=== PATIENT | female | born 1950 | race Caucasian/White ===

== ENCOUNTER → 2018-08-14 09:11 | Outpatient (BNVA) | payer MEDICARE, MEDICAID, SELFPAY | PROVIDERS: PCP Family Medicine; Referring Provider Family Medicine; Visit Provider Student in an Organized Health Care Education/Training Program | DX: M25.511 Pain in right shoulder; M75.101 Unspecified rotator cuff tear or rupture of right shoulder, not specified as traumatic; M12.811 Other specific arthropathies, not elsewhere classified, right shoulder | CPT/HCPCS: 99203; 99213 ==

== ENCOUNTER 2023-07-05 12:31 | Emergency (ER) | payer MEDICARE, MEDICAID, SELFPAY ==
[2023-07-05 12:50] VITALS: BP 136/76; PULSE 84; RESP 16; TEMP 36.3; O2SAT 99
--- NOTE | 2023-07-05 14:15 | DI.RAD_ITS ---
Exam(s) XR HUMERUS RT XR SHOULDER RT COMPLETE 2+V EXAM: XR SHOULDER RT COMPLETE 2+V CLINICAL HISTORY: fall prox humerus pain. TECHNIQUE: 2D digital imaging was performed. Five views. COMPARISON: CR XR shoulder RT complete 2+V from 08/14/2018 CR XR HUMERUS RT from 07/05/2023 FINDINGS: BONES: No acute fracture is present. No bony destructive lesion is seen. JOINTS: No dislocation present. Degenerative changes at the glenohumeral joint, worsening from prior .. Spurring from the tip of the acromion. Narrowing of the normal the acromial humeral distance con sistent with chronic rotator cuff tear. No change from prior. The elbow is unremarkable. SOFT TISSUE: Normal. IMPRESSION: Degenerative changes and chronic rotator cuff tear. No acute abnormality. DATA REPOSITORY: RADIATION DOSE DELIVERED:
--- NOTE | 2023-07-05 14:38 | ED.GENADUL_ITS ---
HPI General Date/Time Provider Initiated Documentation: 07/05/23 12:58 . HPI Narrative: 72-year-old female presents after mechanical slip and fall on ice, right shoulder pain, decreased mobility of right shoulder. Denies loss of conscious nausea vomiting headache abdominal pelvic or leg abnormalities. Ambulatory without assistance. Went to physical therapy today and was partially ranging right upper extremity Related Data Home Medications Medication Instructions Recorded Confirmed omeprazole magnesium 20 mg 20 mg PO DAILY 03/17/17 05/05/23 tablet,delayed release (Prilosec OTC) oxycodone 5 mg tablet 5 mg PO PRN PRN 03/17/17 05/05/23 ibuprofen 200 mg capsule 200 mg PO QID PRN 08/14/18 05/05/23 mirabegron 25 mg tablet,extended 25 mg PO DAILY 08/19/18 05/05/23 release 24 hr (Myrbetriq) albuterol sulfate 90 mcg/actuation 2 puff inhalation Q6H PRN 05/05/23 05/05/23 aerosol inhaler shortness of breath or wheezing #8.5 grams amitriptyline 50 mg tablet 150 mg PO QHS 05/05/23 05/05/23 azithromycin 250 mg tablet See Rx Instructions PO .COMPLEX #6 05/05/23 05/05/23 tabs diphenhydramine HCl 25 mg capsule 25 mg PO DAILY PRN 05/05/23 05/05/23 doxycycline hyclate 100 mg capsule 100 mg PO BID #14 caps 05/05/23 05/05/23 inhalational spacing device #1 ea 05/05/23 05/05/23 (Aerochamber MV spacer) sumatriptan succinate 100 mg tablet 100 mg PO ONCE PRN 05/05/23 05/05/23 Previous Rx's Medication Instructions Recorded albuterol sulfate 90 mcg/actuation 2 puff inhalation Q6H PRN 05/05/23 aerosol inhaler shortness of breath or wheezing #8.5 grams azithromycin 250 mg tablet See Rx Instructions PO .COMPLEX #6 05/05/23 tabs doxycycline hyclate 100 mg capsule 100 mg PO BID #14 caps 05/05/23 inhalational spacing device #1 ea 05/05/23 (Aerochamber MV spacer) Allergies Allergy/AdvReac Type Severity Reaction Status Date / Time cephalexin monohydrate Allergy Intermediate either Unverified 12/09/23 12:22 [From Keflex] hives or difficulty breathing amoxicillin [From Augmentin] Allergy either Unverified 05/05/23 12:22 hives or difficulty breathing clavulanic acid Allergy either Unverified 05/05/23 12:22 [From Augmentin] hives or difficulty breathing paroxetine [From Paxil] AdvReac affected Unverified 05/05/23 12:[address] General Stated Complaint: Orthopedic COBY: 4 Review of Systems Narrative: Review of Systems Constitutional: negative Eyes: negative ENT: negative Cardiovascular: negative Respiratory: negative Gastrointestinal: negative : negative Musculoskeletal: Shoulder pain Skin: negative Neurologic: negative Psych: negative Exam Narrative Exam Narrative: Physical Examination General: alert, awake, cooperative, resting comfortably, no acute distress HEENT: normocephalic, atraumatic; PERRL, EOM intact, conjunctiva normal; no nasal discharge; moist mucous membranes, oral and pharyngeal mucosa normal, tolerating secretions Neck: supple, trachea midline; full ROM Chest: normal to inspection Respiratory: normal respiratory effort, speaking in full sentences Skin: no lesions, rashes or trauma appreciated Neuro: AAOx3, normal speech, moving all extremities Extremities: Tender to palpation proximal humerus, glenoid appears full, no step-off or noticeable deformity, able to partially extend and externally rotate at shoulder however limited by pain, palpation of clavicle normal, range of motion at elbow wrist and hand intact flexion extension of all fingers intact, median radial and ulnar nerve distributions intact, radial pulse intact, soft compartments Psych: Appropriate mood and affect Course Vital Signs Vital signs: Vital Signs Temperature 36.3 C L 07/05/23 12:50 Pulse 84 07/05/23 12:50 Respiratory Rate 16 07/05/23 12:50 Blood Pressure 136/76 07/05/23 12:50 Pulse Oximetry 99 07/05/23 12:50 Temperature 36.3 C L 07/05/23 12:50 Temperature Source Skin 07/05/23 12:50 Pulse 84 07/05/23 12:50 Respiratory Rate 16 07/05/23 12:50 Blood Pressure 136/76 07/05/23 12:50 Blood Pressure Position Sitting 07/05/23 12:50 Pulse Oximetry 99 07/05/23 12:50 Oxygen Delivery Method Room Air 07/05/23 12:50 Oxygen Flow Rate 0 07/05/23 12:50 Pain Level 0 07/05/23 12:50 Comment pt states no pain at rest but gets really bad with movement 07/05/23 12:50 Medical Decision Making 72-year-old female presents with mechanical slip and fall on ice, proximal right shoulder pain, no deformity crepitus or step-off appreciated however decreased range of motion due to discomfort and point tenderness of the proximal humerus, concern for proximal humerus fracture versus less consider dislocation versus rotator cuff tear versus rotator cuff strain versus shoulder sprain, will obtain x-ray of shoulder and humerus, will provide analgesia anti-inflammatory, will place patient in sling for comfort close reassessment disposition pending x-ray results. No evidence of cranial thoracoabdominal trauma, no evidence of lower extremity trauma, ambulatory without assistance neurologically intact. 15: 36 resting comfortably no acute distress. No evidence of dislocation or fracture, evidence of likely chronic rotator cuff injury. Placed in sling for comfort, will follow-up closely with her physical therapist. Home care instructions and return precautions given Quality:SDOH Health Related Social Needs: No Data to Display PFSH All Active Problems (Updated 07/05/23 @ 15:37 by Cristofer Abbasi MD) Shoulder pain (Acute) Right rotator cuff tear arthropathy (Chronic) Social History Smoking/Tobacco Use Status: Former Tobacco Use Smoking risk assessment performed?: Yes Do you feel safe in your relationship?: Yes Discharge Plan Disposition Patient Disposition: Home Condition: Improving Discharge Details Chief Complaint: Orthopedic Clinical Impression: Shoulder pain Primary Care Provider: Enmanuel More ED Provider: Cristofer Abbasi Home Meds and New Rx's Prescriptions: No Action ibuprofen 200 mg capsule 200 mg PO QID PRN amitriptyline 50 mg tablet 150 mg PO QHS Patient Comments: TAKE THREE TABLETS BY MOUTH AT BEDTIME sumatriptan succinate 100 mg tablet 100 mg PO ONCE PRN albuterol sulfate 90 mcg/actuation HFA aerosol inhaler 2 puff inhalation Q6H PRN (Reason: shortness of breath or wheezing) Qty: 8.5 0RF (DME) Aerochamber MV Spacer See Rx Instructions .Route Qty: 1 0RF Rx Instructions: As directed doxycycline hyclate 100 mg capsule 100 mg PO BID Qty: 14 0RF Rx Instructions: Avoid sun exposure. Take with meal. Take 1 pill every 12 hours x 7 days azithromycin 250 mg tablet See Rx Instructions PO .COMPLEX Qty: 6 0RF Rx Instructions: For 250 mg dose pack: take 500 mg today (day 1), then 250 mg for 4 days (days 2-5) PO Myrbetriq 25 mg tablet extended release 24 hr 25 mg PO DAILY diphenhydramine HCl 25 mg capsule 25 mg PO DAILY PRN oxycodone 5 MG tablet 5 mg PO PRN PRN omeprazole magnesium [Prilosec OTC] 20 MG tablet,delayed release (DR/EC) 20 mg PO DAILY Discharge Instructions Instructions: Shoulder Pain (ED) Additional Instructions: Please follow-up with your primary care physician and your physical therapist.
[2023-07-05] MEDS: Lidocaine 5% Patch 1 PATCH TP (15:28)
== END 2023-07-05 15:58 | disposition home or self-care (01) ==
PROVIDERS: Emergency Provider Emergency Medicine; PCP Family Medicine
DX: M25.511 Pain in right shoulder (principal)
CPT/HCPCS: 99283; 73030; 73060